=== PATIENT | female | born 2000 | race Caucasian/White ===

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

== ENCOUNTER → 2019-11-29 07:56 | Outpatient (CLI) | payer BC, SELFPAY ==
--- NOTE | 2019-11-29 08:01 | US_ITS ---
PROCEDURE: US ABDOMEN LIMITED CLINICAL INDICATION: SPLENOMEGLY, DECREASE WBC COMPARISON: RUQ US RUQ-(ABD BENNETT)1ORGAN/QUAD/FU from 01/20/2010 FINDINGS: Multiple images demonstrate the spleen to be of normal size and homogeneous appearance. It measures maximally 11 centimeters pole to pole. There is no intrasplenic lesion. There is no perisplenic fluid collection. Internal color Doppler blood flow to the spleen is confirmed. Adjacent left kidney is a normal appearance measuring approximately 7.6 x 3.3 x 4.9 centimeters. IMPRESSION: Unremarkable limited abdominal ultrasound as detailed above Dictated by: Dk Herrera 11/29/2019 08:58 Electronically signed by Dk Herrera in [place] 11/29/2019 08:58
== END ==
PROVIDERS: PCP Nurse Practitioner Family; Visit Provider Internal Medicine Infectious Disease
DX: D72.819 Decreased white blood cell count, unspecified (principal); R16.1 Splenomegaly, not elsewhere classified
CPT/HCPCS: 76705

== ENCOUNTER → 2020-03-31 14:40 | Outpatient (CLI) | payer BC, SELFPAY | PROVIDERS: PCP Nurse Practitioner Family; Visit Provider Nurse Practitioner Family | DX: R40.0 Somnolence (principal); E66.9 Obesity, unspecified | CPT/HCPCS: G0399 ==

== ENCOUNTER 2020-05-31 13:43 | Emergency (ER) | payer BC, SELFPAY ==
[2020-05-31 14:19] VITALS: BP 125/81; PULSE 92; RESP 18; TEMP 37; O2SAT 98; BMI 33.8
--- NOTE | 2020-05-31 14:35 | HMH.EDUTC ---
[facility] [place] Disposition Clinical Impression: Encounter for laboratory testing for COVID-19 virus URI (upper respiratory infection) Qualifiers: URI type: unspecified URI Qualified Code(s): J06.9 - Acute upper respiratory infection, unspecified Disposition: Home, Self-Care Condition on Discharge: Good Instructions: Sore Throat, DI for Nasal Congestion Additional Instructions: *Monitor Temp, Over the counter Motrin or Tylenol as directed/as needed Tylenol every 4 hours and Motrin every 6 hours (as long as your family doctor has told you that you can take it) for fever or pain. and straight to ER if unable to lower temp less than 101.0 after medication given *Warm salt water gargles may help to soothe the throat *Throat Lozenges *Warm fluids like tea with honey may help to soothe the throat *Sleep elevated *Humidifier/Vaporizer Follow up IMMEDIATELY for new or worsening symptoms or no Noticeable improvement over the next 48-72 hours. 911 for difficulty breathing or swallowing Continue taking prescribed medication that your PCP placed you on on Mon You was tested for today for COVID19 your test result should be back later this evening, you may call back later this evening to see if your test results are back and the result You was given a handout with instructions for Self Quarantine and Self isolation for while you wait on test results and what to do if they are positive Referrals: Emily Rodarte APRN [Primary Care Provider] - As needed Forms: Work/School Release Time of Disposition: 14:40 Medical Decision Making - Eulogio Inquiry Pt receiving controlled substance: No Eulogio was queried for this patient: No Vital Signs: 05/31/20 14:19 Temperature 98.6 F Temperature Source Oral Pulse Rate [Radial] 92 H Respiratory Rate 18 Blood Pressure [Right Arm] 125/81 Blood Pressure Mean [Right Arm] 95 Blood Pressure Source [Right Arm] Automatic Cuff Blood Pressure Position [Right Arm] Sitting 02 Sat by Pulse Oximetry 98 Oxygen Delivery Method Room Air Orders (Tests/Meds): ORDERS Category Date Time Status Covid-19 Nasal PCR ([facility]) Routine Lab 05/31/20 13:53 Received [facility] [place] HPI - General Stated complaint: sore throat,earache,cough,headache Time Seen by Provider: 05/31/20 14:35 Mode of Arrival: Ambulatory Source of Information: Patient Limitations: No Limitations Description of Symptoms (Recalled from Triage Doc. by RN): sinus pain, congestion, coughing, sore throat, runny nose, weakness, body aches, headaches, chills. HEENT Symptoms (Recalled from RN notes): Yes Resp Symptoms (Recalled from RN notes): Yes Skin Symptoms (Recalled from RN notes): No MS Symptoms (Recalled from RN notes): No Functional Status (Recalled from RN notes): wnl - History of Present Illness Provider Complaint: Patient states that she started on steriods and antibiotics on Mon but they havent helped States that she has been having sinus pain and drainage along with cough and sore throat States that she recently started a new job and was worried that she may have been exposed to COVID - Related Data Home Medications Medication Instructions Recorded Confirmed glycopyrrolate 1 mg tablet 1 mg PO ONCE tab 05/18/20 05/18/20 phentermine 37.5 mg tablet 37.5 mg PO DAILY tab 05/18/20 05/18/20 sertraline 100 mg tablet 100 mg PO DAILY tab 05/18/20 05/18/20 triamcinolone acetonide 0.1 % TOPICAL 05/18/20 05/18/20 topical cream Allergies Allergy/AdvReac Type Severity Reaction Status Date / Time No Known Allergies Allergy Verified 05/18/20 10:19 - Worker's Comp Is this a Worker's Comp case?: No [facility] History - Hepatitis A Screen Drug use history?: No High risk sexual behaviors?: No History of sexually transmitted infection?: No Currently employed?: No Childcare worker?: No Do you have indoor plumbing?: Yes Do you have electricity?: Yes Attestation statement:: This patient has been screened for Hepatitis A risk factors.
[2020-05-31 14:47] VITALS: BP 125/81; PULSE 92; RESP 18; TEMP 37; O2SAT 98
[2020-05-31 16:38] LABS: UTC Influenza A Antigen Negative (Negative); UTC Strep Screen (Rapid) Negative (Negative)
[2020-05-31 16:41] LABS: UTC Influenza B Antigen Negative (Negative)
== END 2020-05-31 14:48 | disposition home or self-care (01) ==
PROVIDERS: Emergency Provider Nurse Practitioner; PCP Nurse Practitioner Family
DX: J06.9 Acute upper respiratory infection, unspecified (principal); Z20.828 Contact with and (suspected) exposure to other viral communicable diseases; F17.290 Nicotine dependence, other tobacco product, uncomplicated
CPT/HCPCS: 87804; 87880; 99201; U0003

== ENCOUNTER → 2020-06-02 10:53 | Outpatient (CLI) | payer BC, SELFPAY ==
--- NOTE | 2020-06-02 10:53 | MR_ITS ---
PROCEDURE: MR HEAD/BRAIN WO CON CLINICAL INDICATION: Transient alteration of awareness associated with stuttering and word finding difficulties TWITCHING IN EYE THAT CAUSES BLINKING UNCONTROLLABLE DURING EPISODE WHEN TALKS SHE STUTTERS. XYRS. EPISODES HAPPENS X2-3YRS TIMES A YR. HEADACHE AND SENSITIVITY TO LIGHT FOLLOWED BY EXHAUSTION. COMPARISON: No exams were available for comparison TECHNIQUE: Routine multiplanar multi echo sequences are performed without gadolinium enhancement. FINDINGS: Midline shift, mass effect, intracranial hemorrhage, or hydrocephalus is evident. No evidence of acute infarction. The cerebellopontine angle, cerebellum, and brainstem have an unremarkable appearance. There is minimal cerebellar tonsillar ectopia of 3 mm. The 4th ventricle has an unremarkable appearance. The pituitary, optic chiasm, and upper cervical spinal cord have an unremarkable appearance. No abnormal white matter signal intensity. The hippocampal gyri are unremarkable in the temporal horns are symmetric. No mastoid effusion or sinus air-fluid level. IMPRESSION: No acute intracranial finding. Minimal cerebellar tonsillar ectopia which is of questionable clinical significance with unremarkable appearing 4th ventricle Dictated by: Jesus Mathew MD 06/03/2020 13:24 Jesus Mathew MD in [place] 06/03/2020 13:24
== END ==
PROVIDERS: PCP Nurse Practitioner Family; Visit Provider Specialist
DX: F80.81 Childhood onset fluency disorder (principal); R40.4 Transient alteration of awareness; R47.89 Other speech disturbances; R51 Headache
CPT/HCPCS: 70551

== ENCOUNTER → 2020-10-19 13:52 | Outpatient (CLI) | payer BC, SELFPAY ==
--- NOTE | 2020-10-19 13:58 | XR_ITS ---
PROCEDURE: XR LUMBAR SPINE MIN 4V CLINICAL INDICATION: ACUTE MIDLINE LOW BAKC PAIN W/O SCIATICA, WEAKNESS OF LEGS COMPARISON: No exams were available for comparison FINDINGS: No fracture or dislocation. No lytic or blastic change. There is normal mineralization. The disc spaces are well-preserved. No significant degenerative/arthritic changes. No erosive changes evident. Other findings:There is acute anterior angulation of the coccyx nonspecific and may be developmental or posttraumatic. IMPRESSION: Negative lumbar spine. Anterior angulation of the coccyx which may be posttraumatic or developmental Dictated by: Jesus Mathew MD 10/19/2020 16:42 Jesus Mathew MD in [place] 10/19/2020 16:42
== END ==
PROVIDERS: PCP Nurse Practitioner Family; Visit Provider Nurse Practitioner Family
DX: M54.5 Low back pain (principal); R29.898 Other symptoms and signs involving the musculoskeletal system
CPT/HCPCS: 72110

== ENCOUNTER → 2020-11-12 15:51 | Outpatient (CLI) | payer BC, SELFPAY ==
--- NOTE | 2020-11-12 15:53 | XR_ITS ---
PROCEDURE: XR CHEST 2V CLINICAL HISTORY: CHEST PAIN UNSPECIFIED, SOB COMPARISON: No exams were available for comparison FINDINGS: The cardiomediastinal silhouette and pulmonary vascularity are within normal limits. The lungs are clear without infiltrates, suspicious nodules, or pleural effusions. There is evidence of old granulomatous disease. No acute bony findings. IMPRESSION: No acute findings. Dictated by: Jesus Mathew MD 11/12/2020 17:25 Jesus Mathew MD in [place] 11/12/2020 17:25
== END ==
LOC: RAD 15:51 → COVID.OUT 16:12
PROVIDERS: PCP Nurse Practitioner Family; Visit Provider Nurse Practitioner Family
DX: Z20.822 Contact with and (suspected) exposure to COVID-19 (principal); R06.02 Shortness of breath; R05 Cough; R53.83 Other fatigue
CPT/HCPCS: 71046; U0003

== ENCOUNTER 2021-01-09 09:00 | Emergency (ER) | payer BC, SELFPAY ==
[2021-01-09 09:21] VITALS: BP 124/64; PULSE 84; RESP 18; TEMP 37; O2SAT 99; BMI 35.4
--- NOTE | 2021-01-09 09:27 | HMH.EDUTC ---
[facility] [place] Disposition Clinical Impression: Sinusitis Qualifiers: Sinusitis location: unspecified location Chronicity: unspecified Qualified Code(s): J32.9 - Chronic sinusitis, unspecified Disposition: Home, Self-Care Condition on Discharge: Good Instructions: Sinusitis, DI for Sinusitis, Amoxicillin and Clavulanic Acid Additional Instructions: *Monitor Temp, Over the counter Motrin or Tylenol as directed/as needed Tylenol every 4 hours and Motrin every 6 hours (as long as your family doctor has told you that you can take it) for fever or pain. and straight to ER if unable to lower temp less than 101.0 after medication given *Warm salt water gargles may help to soothe the throat *Throat Lozenges *Warm fluids like tea with honey may help to soothe the throat *Sleep elevated *Humidifier/Vaporizer *Flonase 2 sprays in each nostril daily but be aware that it may take 2-3 days before you notice improvement Mucinex during the day for your cough and cough suppressant only at night. Be sure to drink lots of water. Your throat swab was sent for culture. Those results are typically sent to your primary care. Be sure to follow up in 2-3 days with your family doctor/primary care physician if no improvement so they can review those result and treat if necessary. If you don?t have a primary care doctor, I recommend you get one but in the mean time, you will have to return to a walk in clinic Follow up IMMEDIATELY for new or worsening symptoms or no Noticeable improvement over the next 48-72 hours. 911 for difficulty breathing or swallowing Prescriptions: Amoxicillin/Potassium Clav [Augmentin 875-125 Tablet] 1 tab PO Q12H 7 Days #14 tab Transmission Status: Received by [facility] Fluticasone Propionate [Flonase 50mcg nasal spray 16gm] 1 spr NS DAILY #1 bottle Transmission Status: Received by [facility] methylPREDNISolone [Medrol 4mg tab] 4 mg PO DIRECTED #21 tab Transmission Status: Received by [facility] Referrals: Emily Rodarte APRN [Primary Care Provider] - As needed Time of Disposition: 09:52 Medical Decision Making - Eulogio Inquiry Pt receiving controlled substance: No Eulogio was queried for this patient: No Vital Signs: 01/09/21 09:21 01/09/21 09:56 Temperature 98.6 F 98.5 F Temperature Source Oral Pulse Rate 90 Pulse Rate [Left Radial] 84 Respiratory Rate 18 18 Blood Pressure 119/63 Blood Pressure [Right Arm] 124/64 Blood Pressure Mean [Right Arm] 84 02 Sat by Pulse Oximetry 99 Oxygen Delivery Method Room Air - Lab Data Lab results reviewed: Yes: I reviewed the patient's lab results. Lab Results 01/09/21 09:15: Strep Scn Rapid Clinic Negative 01/09/21 09:37: Tst Clinic Negative Orders (Tests/Meds): ORDERS Category Date Time Status Covid-19 Nasal PCR ([facility]) Routine Lab 01/09/21 09:50 Received Strep Screen Confirmation Stat Micro 01/09/21 09:15 Received [facility] UTC HPI - General Stated complaint: body aches, both ear pain Time Seen by Provider: 01/09/21 09:27 Mode of Arrival: Ambulatory Source of Information: Patient Limitations: No Limitations Description of Symptoms (Recalled from Triage Doc. by RN): Body aches, sore throat, bilateral ear pain, weakness, productive cough HEENT Symptoms (Recalled from RN notes): Yes Resp Symptoms (Recalled from RN notes): Yes Skin Symptoms (Recalled from RN notes): No MS Symptoms (Recalled from RN notes): No Functional Status (Recalled from RN notes): na - History of Present Illness Provider Complaint: Patient states that she has been having pressure in her head behind her eyes, bilateral ear pain, sore throat, drainage and at time she coughs up some mucous States that today she noticed her lymph nodes was swollen and feels like she may have strep throat - Related Data Home Medications Medication Instructions Recorded Confirmed glycopyrrolate 1 mg tablet 1 mg PO ONCE tab 05/18/20 12/14/20 Pre
[2021-01-09 09:56] VITALS: BP 119/63; PULSE 90; RESP 18; TEMP 36.9
[2021-01-09 09:58] LABS: UTC Pregnancy Test, Urine Negative (Negative)
[2021-01-09 09:59] LABS: UTC Strep Screen (Rapid) Negative (Negative)
[2021-01-09 20:45] LABS: UTC Influenza A Antigen Negative (Negative)
[2021-01-09 20:46] LABS: UTC Influenza B Antigen Negative (Negative)
== END 2021-01-09 09:59 | disposition home or self-care (01) ==
PROVIDERS: Emergency Provider Nurse Practitioner; PCP Nurse Practitioner Family
DX: J32.9 Chronic sinusitis, unspecified (principal); Z20.822 Contact with and (suspected) exposure to COVID-19; F41.8 Other specified anxiety disorders; F17.290 Nicotine dependence, other tobacco product, uncomplicated; Z79.899 Other long term (current) drug therapy
CPT/HCPCS: 81025; 87804; 87880; 99202; G0463; U0003

== ENCOUNTER 2021-02-18 10:42 | Emergency (ER) | payer BC, SELFPAY ==
[2021-02-18 11:10] VITALS: BP 109/79; PULSE 68; RESP 17; TEMP 36.8; O2SAT 100; BMI 36.3
--- NOTE | 2021-02-18 11:22 | HMH.EDUTC ---
[facility] [place] Disposition Clinical Impression: Gastroenteritis Disposition: Home, Self-Care Condition on Discharge: Good Instructions: Viral Gastroenteritis, DI for Viral Gastroenteritis -- Adult Additional Instructions: Drink plenty of fluids. Take tylenol or ibuprofen for pain or fever. Take the medications as directed. Follow up with your regular doctor. GO TO THE ER FOR ANY WORSENING SYMPTOMS Prescriptions: Ondansetron [Zofran 4mg ODT] 4 mg PO Q8HP PRN #12 tab.rapdis PRN Reason: Nausea Transmission Status: Received by [id number] Referrals: Emily Rodarte APRN [Primary Care Provider] - Forms: Work/School Release Time of Disposition: 11:28 Medical Decision Making - Medical Records Medical records reviewed: No: I reviewed the patient's medical records. - Eulogio Inquiry Pt receiving controlled substance: No Vital Signs: 02/18/21 11:10 02/18/21 11:33 Temperature 98.3 F 98 F Temperature Source Oral Oral Pulse Rate 68 Pulse Rate [Right] 68 Respiratory Rate 17 17 Blood Pressure 109/79 L Blood Pressure [Right Arm] 109/79 L Blood Pressure Mean [Right Arm] 89 02 Sat by Pulse Oximetry 100 - Lab Data Lab Results 02/18/21 11:30: Strep Scn Rapid Clinic Negative Orders (Tests/Meds): ORDERS Category Date Time Status Strep Screen Confirmation Stat Micro 02/18/21 11:30 Received [facility] HPI - General Stated complaint: nausea, diarrhea, weakness Time Seen by Provider: 02/18/21 11:22 Mode of Arrival: Ambulatory Source of Information: Patient Limitations: No Limitations Description of Symptoms (Recalled from Triage Doc. by RN): pt c/o N/V/D and weakness that started last night. HEENT Symptoms (Recalled from RN notes): No Resp Symptoms (Recalled from RN notes): No Skin Symptoms (Recalled from RN notes): No MS Symptoms (Recalled from RN notes): No Functional Status (Recalled from RN notes): na - History of Present Illness Provider Complaint: She states that she has had n/d since last night. She has not vomited, but she states that she could vomit at any time. She denies any abdominal pain. She denies fever and chills. - Related Data Previous Rx's Medication Instructions Recorded sertraline 100 mg tablet 100 mg PO DAILY #30 tab 01/29/21 dextroamphetamine-amphetamine ER 15 mg PO DAILY #30 cap 02/12/21 15 mg 24hr capsule,extend release Ondansetron [Zofran 4mg ODT] 4 mg PO Q8HP PRN #12 tab.rapdis 02/18/21 Allergies Allergy/AdvReac Type Severity Reaction Status Date / Time No Known Allergies Allergy Verified 02/18/21 11:20 - Worker's Comp Is this a Worker's Comp case?: No [facility] History - Hepatitis A Screen Drug use history?: No High risk sexual behaviors?: No History of sexually transmitted infection?: No Currently employed?: No Childcare worker?: No Do you have indoor plumbing?: Yes Do you have electricity?: Yes Attestation statement:: This patient has been screened for Hepatitis A risk factors. I have reviewed the patient's past medical history: Yes Medical History: Reports:: Anxiety, Asthma, Depression, Migraine Other Medical History: Reports: Anemia Laterality Cases: Bilateral: Tonsillectomy Other Surgeries: Yes: Other Amputation: No Fractures: No - Social History Smoking Status: Current every day smoker Tobacco Type: e-cigarettes Alcohol Intake: never Substance Use Type: denies use Occupational Status: employed Housing: house Household Members: significant other - Psychiatric History Pschychiatric History:: Reports:: Anxiety, Depression Family Hx:: Diabetes, Heart Attack, Kidney Disease, Thyroid Disorder ROS Obtained: Yes All systems reviewed & no additional complaints - Constitutional Constitutional: Denies chills, Denies fever(s), Reports poor appetite, Reports malaise - Eyes Eyes: Denies eye discharge - ENT Ears, Nose, Mouth, and Throat: Denies dizziness, Denies otalgia, Denies sore throat - Cardiovascul
[2021-02-18 11:32] LABS: UTC Strep Screen (Rapid) Negative (Negative)
[2021-02-18 11:33] VITALS: BP 109/79; PULSE 68; RESP 17; TEMP 36.6
== END 2021-02-18 11:41 | disposition home or self-care (01) ==
PROVIDERS: Emergency Provider Nurse Practitioner Family; PCP Nurse Practitioner Family
DX: K52.9 Noninfective gastroenteritis and colitis, unspecified (principal); F41.9 Anxiety disorder, unspecified; F32.9 Major depressive disorder, single episode, unspecified; F17.290 Nicotine dependence, other tobacco product, uncomplicated
CPT/HCPCS: 87880; 99202; G0463; U0003

== ENCOUNTER 2021-04-05 08:59 | Emergency (ER) | payer BC, SELFPAY ==
--- NOTE | 2021-04-05 09:20 | HMH.EDUTC ---
[facility] [place] Clinical Impression: Viral syndrome Acute bronchitis Qualifiers: Bronchitis organism: unspecified organism Qualified Code(s): J20.9 - Acute bronchitis, unspecified Disposition: Home, Self-Care Condition on Discharge: Good Instructions: DI for Acute Bronchitis, Preventing the Spread of Coronavirus Discharge Instructions Additional Instructions: Go home and quarantine until we have the results of your Covid-19 test. Take the medications as directed. Follow up with your primary care physician. GO TO THE ER FOR ANY WORSENING SYMPTOMS OR CONCERNS, ESPECIALLY ANY DIFFICULTY BREATHING Prescriptions: Brompheniramine/Pseudoephed/Dm [Bromfed Dm Cough Syrup] 5 ml PO Q6HP PRN #240 syrup PRN Reason: Cough Transmission Status: Received by [facility] predniSONE [Deltasone 10mg tablet] 10 mg PO BID 5 Days #10 tab Transmission Status: Received by [facility] Azithromycin [Z-Angel 250mg Tab*] 250 mg PO UD DOSE PK #6 tab Transmission Status: Received by [facility] Referrals: Emily Rodarte APRN [Primary Care Provider] - Forms: Work/School Release Time of Disposition: 09:33 Medical Decision Making - Medical Records Medical records reviewed: No: I reviewed the patient's medical records. - Eulogio Inquiry Pt receiving controlled substance: No Vital Signs: 04/05/21 09:23 04/05/21 10:21 Temperature 100.2 F H 100 F H Temperature Source Oral Pulse Rate 109 H Pulse Rate [Left] 105 H Respiratory Rate 18 16 Blood Pressure 123/84 Blood Pressure [Right Arm] 108/63 L Blood Pressure Mean [Right Arm] 78 02 Sat by Pulse Oximetry 100 - Lab Data Lab results reviewed: Yes: I reviewed the patient's lab results. Lab Results 04/05/21 09:15: SARS-CoV-2 (PCR) Detected A, Influenza A Untype (PCR) Not detected, Influenza Type B (PCR) Not detected 04/05/21 09:15: Chlamy pneumoniae PCR Not detected, Adenovirus (PCR) Not detected, B. pertussis DNA (PCR) Not detected, Coronavirus OC43 (PCR) Not detected, Coronavirus HKU1 (PCR) Not detected, Coronavirus 229E (PCR) Not detected, Coronavirus NL63 (PCR) Not detected, Human Metapneumovir PCR Not detected, Influenza A (H1) PCR Not detected, Influ A (H1N1/09) PCR Not detected, Influenza A (H3) PCR Not detected, Influenza Type A (PCR) Not detected, Influenza Type B (PCR) Not detected, M. pneumoniae (PCR) Not detected, Parainfluenza 1 (PCR) Not detected, Parainfluenza 2 (PCR) Not detected, Parainfluenza 3 (PCR) Not detected, Parainfluenza 4 (PCR) Not detected, RSV (PCR) Not detected, Entero/Rhino (PCR) Not detected 04/05/21 09:30: Strep Scn Rapid Clinic Negative Orders (Tests/Meds): ORDERS Category Date Time Status Strep Screen Confirmation Stat Micro 04/05/21 09:30 [place] [facility] [place] - General Stated complaint: Weakness headache congestion Time Seen by Provider: 04/05/21 09:21 - History of Present Illness Provider Complaint: She states that she has had a cough, body aches and generally feeling bad since yesterday. She denies documented fever. She has diarrhea that started 3 days ago. Denies n/v. - Related Data Previous Rx's Medication Instructions Recorded dextroamphetamine-amphetamine ER 15 mg PO DAILY #30 cap 02/12/21 15 mg 24hr capsule,extend release Ondansetron [Zofran 4mg ODT] 4 mg PO Q8HP PRN #12 tab.rapdis 02/18/21 sertraline 100 mg tablet 150 mg PO DAILY #30 tab 03/15/21 Azithromycin [Z-Angel 250mg Tab*] 250 mg PO UD DOSE PK #6 tab 04/05/21 Brompheniramine/Pseudoephed/Dm 5 ml PO Q6HP PRN #240 syrup 04/05/21 [Bromfed Dm Cough Syrup] predniSONE [Deltasone 10mg tablet] 10 mg PO BID 5 Days #10 tab 04/05/21 Allergies Allergy/AdvReac Type Severity Reaction Status Date / Time No Known Allergies Allergy Verified 04/05/21 09:30 [facility] History - Hepatitis A Screen Attestation statement:: This patient has been screened for Hepatitis A risk factors. I have reviewed the patient's past me
[2021-04-05 09:23] VITALS: BP 108/63; PULSE 105; RESP 18; TEMP 37.9; O2SAT 100; BMI 36.3
[2021-04-05 09:35] LABS: Adenovirus,PCR Not Detected (NotDetected); Bordetella Pertussis Not Detected (NotDetected); Chlamydophila Pneumoniae, PCR Not Detected (NotDetected); Coronavirus 229E Not Detected (NotDetected); Coronavirus NL63 Not Detected (NotDetected); Coronavirus OC43 Not Detected (NotDetected); Coronovirus HKU1,PCR Not Detected (NotDetected); Human Metapneumovirus Not Detected (NotDetected); Influenza A, PCR Not Detected (NotDetected); Influenza AH1, 2009 Not Detected (NotDetected); Influenza AH1, PCR Not Detected (NotDetected); Influenza AH3,PCR Not Detected (NotDetected); Influenza B, PCR Not Detected (NotDetected); Mycoplasma Pneumoniae, PCR Not Detected (NotDetected); Parainfluenza 1, PCR Not Detected (NotDetected); Parainfluenza 2, PCR Not Detected (NotDetected); Parainfluenza 3, PCR Not Detected (NotDetected); Parainfluenza 4, PCR Not Detected (NotDetected); Respiratory Syncytial Virus Not Detected (NotDetected); Rhinovirus/Enterovirus Not Detected (NotDetected)
[2021-04-05 10:21] VITALS: BP 123/84; PULSE 109; RESP 16; TEMP 37.7
[2021-04-05 10:56] LABS: UTC Strep Screen (Rapid) Negative (Negative)
[2021-04-05 11:46] LABS: Coronavirus 19, PCR Detected (NotDetected)
--- NOTE | 2021-04-05 16:56 | PC.NURSE ---
Pt called and advised of positive covid test
== END 2021-04-05 10:26 | disposition home or self-care (01) ==
PROVIDERS: Emergency Provider Nurse Practitioner Family; PCP Nurse Practitioner Family
DX: B34.9 Viral infection, unspecified (principal); J20.9 Acute bronchitis, unspecified; F41.9 Anxiety disorder, unspecified; J45.909 Unspecified asthma, uncomplicated; F32.9 Major depressive disorder, single episode, unspecified; G43.909 Migraine, unspecified, not intractable, without status migrainosus; D64.9 Anemia, unspecified; Z72.0 Tobacco use
CPT/HCPCS: 87486; 87581; 87633; 87798; 87880; 99203; G0463; U0003

== ENCOUNTER → 2021-04-15 11:14 | Outpatient (CLI) | payer BC, SELFPAY | PROVIDERS: PCP Nurse Practitioner Family; Visit Provider Nurse Practitioner Family | DX: Z20.822 Contact with and (suspected) exposure to COVID-19 (principal) | CPT/HCPCS: U0003 ==

== ENCOUNTER 2021-07-30 18:21 | Emergency (ER) | payer BC, SELFPAY ==
[2021-07-30 18:36] VITALS: BP 143/76; PULSE 80; RESP 16; TEMP 36.5; O2SAT 100; BMI 38.4
--- NOTE | 2021-07-30 19:09 | HMH.EDUTC ---
[facility] [place] Clinical Impression: Impetigo Disposition: Home, Self-Care Condition on Discharge: Good Instructions: DI for Impetigo, Mupirocin Additional Instructions: Keep the affected area clean and dry. Follow up with your regular doctor. Let your grave cleaner doctor know what is going on with you also. Follow their orders from there. Take the antibiotics as directed and apply the topical antibiotics as directed. GO TO THE ER FOR ANY WORSENING SYMPTOMS Prescriptions: Mupirocin [Bactroban 2% Ointment 22gm tube] 1 applicatio TP TID 7 Days #1 gm Transmission Status: Received by [email or web address] cephALEXin [cephALEXin 500mg capsule] 500 mg PO Q6H 7 Days #28 cap Transmission Status: Received by [email or web address] Referrals: Emily Rodarte APRN [Primary Care Provider] - Time of Disposition: 19:20 Medical Decision Making - Medical Records Medical records reviewed: No: I reviewed the patient's medical records. - Eulogio Inquiry Pt receiving controlled substance: No Vital Signs: 07/30/21 18:36 07/30/21 19:26 Temperature 97.7 F 97.7 F Temperature Source Oral Pulse Rate 80 Pulse Rate [Left] 80 Respiratory Rate 16 16 Blood Pressure 143/76 H Blood Pressure [Right Arm] 143/76 H Blood Pressure Mean [Right Arm] 98 02 Sat by Pulse Oximetry 100 Orders (Tests/Meds): ORDERS Category Date Time Status Wound Culture and Gram Stain Stat Micro 07/29/21 19:16 Ordered [facility] [place]PI - General Stated complaint: RASH Time Seen by Provider: 07/30/21 19:09 Mode of Arrival: Ambulatory Source of Information: Patient Limitations: No Limitations Description of Symptoms (Recalled from Triage Doc. by RN): pt c/o a rash on her L thumb, L lower arm, and above her R eyebrow. pt is 9 wks . HEENT Symptoms (Recalled from RN notes): No Resp Symptoms (Recalled from RN notes): No Skin Symptoms (Recalled from RN notes): Yes MS Symptoms (Recalled from RN notes): No Functional Status (Recalled from RN notes): wnl - History of Present Illness Provider Complaint: She has several crusted lesions on her that have been itching. One is on her left fore arm, one is on her forehead, one is on her right facial cheek. She states they began about 4 days ago and they felt like bug bites at first. Since then they have got larger and drained clear yellowish drainage. She denies any fever or chills. She is 9 weeks . She denies any issues with her or any other complaints. - Related Data Previous Rx's Medication Instructions Recorded Ondansetron [Zofran 4mg ODT] 4 mg PO Q8HP PRN #12 tab.rapdis 02/18/21 sertraline 100 mg tablet 150 mg PO DAILY #45 tab 07/20/21 Mupirocin [Bactroban 2% Ointment 1 applicatio TP TID 7 Days #1 gm 07/30/21 22gm tube] cephALEXin [cephALEXin 500mg 500 mg PO Q6H 7 Days #28 cap 07/30/21 capsule] Allergies Allergy/AdvReac Type Severity Reaction Status Date / Time No Known Allergies Allergy Verified 07/20/21 08:49 - Worker's Comp Is this a Worker's Comp case?: No [facility] History - Hepatitis A Screen Drug use history?: No High risk sexual behaviors?: No History of sexually transmitted infection?: No Currently employed?: No Childcare worker?: No Do you have indoor plumbing?: Yes Do you have electricity?: Yes Attestation statement:: This patient has been screened for Hepatitis A risk factors. I have reviewed the patient's past medical history: Yes Medical History: Reports:: Anxiety, Asthma, Depression, Migraine Other Medical History: Reports: Anemia Laterality Cases: Bilateral: Tonsillectomy Other Surgeries: Yes: Other Amputation: No Fractures: No - Social History Smoking Status: Current every day smoker Tobacco Type: e-cigarettes Alcohol Intake: never Substance Use Type: denies use Occupational Status: employed Housing: house Household Members: significant other - Psychiatric History Pschychiatric History:: Reports:: Anxie
[2021-07-30 19:26] VITALS: BP 143/76; PULSE 80; RESP 16; TEMP 36.5
== END 2021-07-30 19:43 | disposition home or self-care (01) ==
PROVIDERS: Emergency Provider Nurse Practitioner Family; PCP Nurse Practitioner Family
DX: L01.00 Impetigo, unspecified (principal); Z3A.09 9 weeks gestation of pregnancy; F41.8 Other specified anxiety disorders
CPT/HCPCS: 87070; 87077; 87186; 87205; 99202; G0463

== ENCOUNTER 2022-02-08 04:40 | Observation (INO) | payer BC, SELFPAY ==
[2022-02-08] VITALS (23 sets, daily range): BP systolic 128–156; BP diastolic 60–96; PULSE 63–95; RESP 16–18; TEMP 36.6–36.8; O2SAT 98–99; BMI 42.5
--- NOTE | 2022-02-08 04:19 | PC.NURSE ---
PT TO FLOOR AT 0405, C/O HIGH B/P AND DULL H/A UNRELIEVED BY TYLENOL. NO S/S OF COVID. U/A ATTEMPTED AT THIS TIME BUT UNABLE TO VOID. TO ROOM 272, MOTHER WITH HER. AMBULATING WELL INDEPENDENTLY. +2 NON PITTING EDEMA TO BLE. CLONUS ABSENT, REFLEXES PRESENT.
--- NOTE | 2022-02-08 04:38 | PC.NURSE ---
CONTACTED JUAN R GOTTLIEB TO UPDATE ON PT. ORDERS TO ADMIT AND BEGIN MAGNESIUM AT THIS TIME.
--- NOTE | 2022-02-08 05:59 | PC.NURSE ---
PT RESTING COMFORTABLY IN BED AT THIS TIME. B/P BEING TAKEN Q5MINS. AWAITING LAB RESULTS TO BEGIN MAGNESIUM. NO NEEDS OR C/O NOTED.
[2022-02-08 06:22] LABS: Basophils # 0.1 K/mm3 (0-0.2); Basophils % 1.3 % (0.1-2.0); Eosinophils # 0.1 K/mm3 (0.0-0.4); Eosinophils % 1.4 % (0.1-12.0); Hematocrit 35.3 % (37.0-47.0); Hemoglobin 12.4 g/dL (12.2-16.2); Lymphocytes # 2.6 K/mm3 (0.7-4.5); Lymphocytes % 33.4 % (10-50); Mean Corpuscular HGB Conc 35.1 g/dL (31.8-35.4); Mean Corpuscular Hemoglobin 34.1 pg (27.0-31.2); Mean Corpuscular Volume 97.1 fl (81-99); Mean Platelet Volume 13.9 fl (7.4-10.4); Monocytes # 0.4 K/mm3 (0.1-1.0); Monocytes % 5.1 % (1.7-9.3); Neutrophils # 4.6 K/mm3 (1.8-7.8); Neutrophils % 58.9 % (37.0-80.0); Platelet Count 114 K/mm3 (142-424); Red Blood Count 3.64 M/mm3 (4.20-5.40); Red Cell Distribution Width 13.2 % (11.5-17.5); White Blood Count 7.9 K/mm3 (4.8-10.8)
[2022-02-08 06:32] LABS: Activated Partial Thrombo Time 26.5 seconds (22.8-30.6); Fibrinogen 383 mg/dL (229.9-363.5); INR 0.84 (0.9-1.1); Prothrombin Time 9.6 seconds (10.1-12.5)
[2022-02-08 07:16] LABS: Uric Acid 4.4 mg/dl (2.5-6.2)
[2022-02-08 07:21] LABS: Alanine Aminotransferase 17 U/L (12-78); Anion Gap 8.5 mEq/L (5-15); Aspartate Amino Transferase 32 U/L (14-36); Blood Urea Nitrogen 10 mg/dl (7-17); Calcium 8.7 mg/dl (8.4-10.2); Carbon Dioxide 26 mmol/L (22.0-30.0); Chloride 104 mmol/L (98-107); Creatinine Clearance Estimated 87 mL/min (50-200); Estimated Glomerular Filt Rate 90 ml/min (>60); GFR (African American) 109 ML/MIN (>60); Glucose 89 mg/dl (74-100); Magnesium 1.5 mg/dl (1.6-2.3); Potassium 3.5 mmoL/L (3.5-5.1); Sodium 135 mmol/L (136-145)
[2022-02-08 07:22] LABS: D-Dimer 1.91 ug/mL (0.0-0.5)
--- NOTE | 2022-02-08 07:40 | PC.NURSE ---
0710 Sleeping soundly, resps even and unlabored.
--- NOTE | 2022-02-08 07:44 | HMH.PHAINT ---
MEDICATION RECONCILIATION COMPLETED ON PATIENT USING EXTERNAL FILL HISTORY FROM PHARMACY. -RENE FUENTES, SKYLERD
--- NOTE | 2022-02-08 09:11 | HMH.HP ---
*Admission Date: 02/08/22 *Chief complaint: Headache, high blood pressure *History of present illness: She is a 21-year-old 1 now para 1 who was 2 days from a vaginal delivery at [facility]. She was admitted for induction of labor and delivered spontaneously a liveborn male child. She received some nifedipine while hospitalized but was not sent with any blood pressure medicine at home. When she arrived here her blood pressure was in the 150s over 90s. She had a mild headache. As result of that she is admitted for blood pressure control. [facility] History I have reviewed the patient's past medical history: Yes Medical History: Reports:: Anxiety, Asthma, Depression, Migraine *Have you ever received a pneumonia vaccine?: No *Have you received a flu vaccine this season?: No Other Medical History: Reports: Anemia Laterality Cases: Bilateral: Tonsillectomy Other Surgeries: Yes: Other. No: Amputation: No Fractures: No - *Social History Smoking Status: Current every day smoker Tobacco Type: e-cigarettes Alcohol Intake: never Substance Use Type: denies use *Occupational Status:: employed Housing: house Household Members: significant other *Travel in the last 8 weeks: None - Psychiatric History Pschychiatric History:: Reports:: Anxiety, Depression Family Hx:: Diabetes, Heart Attack, Kidney Disease, Thyroid Disorder Para: 1 Review of Systems - Review of Systems Review of systems:: pertinent systems reviewed and negative unless documented below Meds Home Medications Medication Instructions Recorded Confirmed Type Ondansetron [Zofran 4mg ODT] 4 mg PO Q8HP PRN #12 tab.rapdis 02/18/21 02/08/22 Rx Ibuprofen [Ibuprofen 600mg 600 mg PO TIDP PRN 02/08/22 02/08/22 History Tablet] Mupirocin [Bactroban 2% Ointment 1 applicatio TP TID 02/08/22 02/08/22 History 22gm tube] Sertraline HCl [Zoloft] 150 mg PO DAILY 02/08/22 02/08/22 History Allergies Allergy/AdvReac Type Severity Reaction Status Date / Time No Known Allergies Allergy Verified 01/10/22 08:33 Exam Vital signs and Labs for Last 24 Hours: Temp Pulse Resp BP Pulse Ox 98.2 F 73 18 148/77 H 98 02/08/22 08:12 02/08/22 08:12 02/08/22 08:12 02/08/22 08:12 02/08/22 08:12 Laboratory Results - last 24 hr 02/08/22 05:30: WBC 7.9, RBC 3.64 L, Hgb 12.4, Hct 35.3 L, MCV 97.1, MCH 34.1 H, MCHC 35.1, RDW 13.2, Plt Count 114 L, MPV 13.9 H, Neut % (Auto) 58.9, Lymph % (Auto) 33.4, [place] % (Auto) 5.1, Eos % (Auto) 1.4, Baso % (Auto) 1.3, Neut # (Auto) 4.6, Lymph # (Auto) 2.6, [place] # (Auto) 0.4, Eos # (Auto) 0.1, Baso # (Auto) 0.1 02/08/22 05:30: PT 9.6 L, INR 0.84 L, APTT 26.5, Fibrinogen 383 H 02/08/22 05:30: D-Dimer 1.91 H, Sodium 135 L, Potassium 3.5, Chloride 104, Carbon Dioxide 26, Anion Gap 8.5, BUN 10, Creatinine 0.80, Estimated Creat Clear 87, Estimated GFR 90, Est GFR ( Amer) 109, Glucose 89, Uric Acid 4.4, Calcium 8.7, Magnesium 1.5 L, AST 32, ALT 17 I & O for Last 24 hours: Intake & Output 02/05/22 02/06/22 02/07/22 02/08/22 11:59 11:59 11:59 11:59 Weight 239 lb 15.994 oz - Constitutional no acute distress, obese - *Routine HEENT Exam Head: Present: normocephalic Eye: Present: EOMI, PERRL ENT: Present: mucous membranes moist - *Routine Neck Exam Present: supple, full ROM - *Routine Respiratory Exam Absent: accessory muscle use (good air entry bilaterally), wheezes, crackles - *Routine Cardiovascular Exam Present: RRR. Absent: murmur - *Routine Abdominal Exam Present: soft, normoactive bowel sounds. Absent: tenderness, rebound, guarding, mass - *Routine Rectal Exam Rectal:: deferred - *Routine Genitalia Exam Genitalia:: deferred - *Routine Extremities Exam Present: full ROM. Absent: cyanosis, edema, calf tenderness - *Routine Skin Exam Present: intact (good color) - *Routine Neurological Exam Present: alert, oriented X3 - Routine Psychiatric
--- NOTE | 2022-02-08 09:46 | PC.NURSE ---
0812 RN biophysical completed at this time. Pt has been sleeping in intervals since admission. Mag at 2 g/hr infusing without difficulty, pt denies any discomfort to 20 g in R wrist. Edema noted to BLE and charted in biophysical assessment intervention. Pt is s/p vaginal delivery on 02/05, with report of small amount of lochia. Pt reports prior to admission, she had been trying to breastfeed. Instructed pt that while she is here, infant can stay as well for bonding and feeding but she will need to have someone else stay to take care of the as she is a pt. Education provided to pt on , aware that if will not be here, she will need to use a breast pump. Pt denies any breast discomfort at this time.
[2022-02-08 10:41] LABS: Appearance,Urine CLEAR (Clear); Bilirubin,Urine Negative (Negative); Blood, Urine 3+ (Negative); Color,Urine YELLOW (Yellow); Glucose,Urine (UA) Negative (Negative); Ketones,Urine Negative (Negative); Leukocyte Esterase,Urine TRACE (Negative); Microscopic, Urine URINE MICROSCOPIC (MICROSCOPIC); Nitrate,Urine Negative (Negative); Protein,Urine Negative (Negative); Specific Gravity, Urine 1.025 (1.005-1.030); Urobilinogen,Urine 0.2 EU/dl (0.2)
[2022-02-08 10:54] LABS: Barbiturates Screen,Urine Negative ng/ml (<200)
[2022-02-08 10:55] LABS: Amphetamine/Metha Screen,Urine Negative ng/ml (<1000); Benzodiazepines Screen,Urine Negative ng/ml (<200)
[2022-02-08 10:56] LABS: Methadone Screen,Urine Negative ng/ml (<300)
[2022-02-08 10:57] LABS: Cannabinoid Screen,Urine Negative ng/ml (<50); Cocaine Screen,Urine Negative ng/ml (<300)
[2022-02-08 10:58] LABS: Opiate Screen,Urine Negative ng/ml (<300); Phencyclidine Screen,Urine Negative ng/ml (<25)
[2022-02-08 11:00] LABS: Bacteria,Urine Trace /lpf; RBC,Urine 20-50 #/hpf (0-3); Squamous Epithelial Cell,Urine Occasional #/hpf (0-5)
--- NOTE | 2022-02-08 11:37 | PC.NURSE ---
1130 Assisted pt with using her breast pump, encouraged that we will need to use it every couple hours, pt agreeable.
--- NOTE | 2022-02-08 16:49 | PC.NURSE ---
1548 RN reassessment completed, no acute changes from previous assessment. Pt has rested in intervals throughout the shift. has not joined pt yet, she reports he has a follow up appointment with his PCP and then will be coming to see her. She has been assisted several times this shift with using her breast pump. [facility] packet also provided to pt and reviewed. She continues to deny any headache, blurred vision, spots, epigastric pain. Lung sounds CTA, no c/o SOA. Abd soft and nontender with BS active in all quads. Pt reports lochia as small, denies any difficulty with urination. Tolerating mag infusion well, IV without any s/s infiltration. Bed locked and in lowest position, call light within reach, will continue to monitor.
[2022-02-08 18:26] LABS: Coronavirus 19, PCR Not Detected (NotDetected); Influenza A, PCR Not Detected (NotDetected); Influenza B, PCR Not Detected (NotDetected)
[2022-02-09] VITALS (11 sets, daily range): BP systolic 116–137; BP diastolic 51–75; PULSE 77–91; RESP 16–18; TEMP 36.6–36.8; O2SAT 97–100
[2022-02-09 01:53] LABS: OB Protein,Urine (DIP) Negative (Negative)
--- NOTE | 2022-02-09 04:48 | PC.NURSE ---
PT A&OX4. TOLERATING RA WELL. UP TO BATHROOM INDEPENDENTLY. ADEQUATE U/O T/O SHIFT. PT HAS HAD NO C/O PAIN, OR HEADACHE THUS FAR. ONLY C/O FEELING SLEEPY. HAS RESTED INTERMITTENTLY T/O SHIFT. PT HAS BEEN PUMPING EVERY COUPLE HOURS, DOING VERY WELL. TOLERATING MAGNESIUM INFUSION WELL. +2 PITTING EDEMA STILL PRESENT TO BLE. CLONUS ABSENT, REFLEXES PRESENT. URINE PROTEIN OBTAINED, NEGATIVE. NO VISION ISSUES OR RUQ PAIN NOTED. B/P HAS BEEN STABLE T/O SHIFT. AND NB IN ROOM T/O NIGHT-NB ADMITTED AT BEGINNING OF SHIFT FOR PHOTOTHERAPY. AT 0430, DID MOVE PT TO ROOM 280. TOLERATED WELL. ALL BELONGINGS TO ROOM 280. RESTING AT THIS TIME, NO NEEDS OR C/O NOTED. VSS, WILL CONTINUE TO MONITOR. MAG LEVELS TO BE DRAWN AT 0600.
[2022-02-09 07:14] LABS: Magnesium 5.9 mg/dl (1.6-2.3)
--- NOTE | 2022-02-09 11:33 | HMH.DCSUM ---
General - General Admission date:: 02/08/22 Discharge date: 02/09/22 HPI HPI: She is a 21-year-old 1 now para 1 who was 2 days from a vaginal delivery at [facility]. She was admitted for induction of labor and delivered spontaneously a liveborn male child. She received some nifedipine while hospitalized but was not sent with any blood pressure medicine at home. When she arrived here her blood pressure was in the 150s over 90s. She had a mild headache. As result of that she is admitted for blood pressure control. Hospital Course Hospital Course: While hospitalized she received magnesium sulfate 4 g bolus then 2 g an hour for 24 hours. She was started on labetalol 200 mg twice daily. Her blood pressure has stabilized. She will be discharged home today to follow-up with me in a week's time to check her blood pressure. She will continue with labetalol 200 mg twice daily. She was given the usual instructions with respect to limiting her activity, driving and sexual activity. She will call if she has any further symptoms of high blood pressure. Her condition on discharge is stable and improved. Objective Vital signs: Temp Pulse Resp BP Pulse Ox 97.8 F 88 18 129/58 L 100 02/09/22 08:15 02/09/22 10:32 02/09/22 08:15 02/09/22 10:32 02/09/22 08:15 no acute distress - *Routine HEENT Exam Head: Present: normocephalic Eye: Present: EOMI, PERRL ENT: Present: mucous membranes moist Results Labs on day of discharge: Labs from last 24 hours 02/09/22 02/09/22 02/08/22 06:58 00:00 18:15 Magnesium 5.9 H D Urine Protein Negative SARS-CoV-2 (PCR) Not detected Influenza A Untype (PCR) Not detected Influenza Type B (PCR) Not detected DS: Diagnosis - Discharge Diagnosis (1) Hypertension, condition or complication Status: Acute Discharge Plan - Patient Discharge Instructions ACTIVITY: No heavy lifting DIET: continue same diet Patient Instructions: DI for Pre-eclampsia - Follow up Plan Follow up with: Jorge A Logan MD [Staff Physician] - 02/14/22 10:45 am Disposition: Home, Self-Care Condition at discharge:: Improved Home Medications: Home Medications Medication Instructions Recorded Confirmed Type Ondansetron [Zofran 4mg ODT] 4 mg PO Q8HP PRN #12 tab.rapdis 02/18/21 02/08/22 Rx Ibuprofen [Ibuprofen 600mg 600 mg PO TIDP PRN 02/08/22 02/08/22 History Tablet] Mupirocin [Bactroban 2% Ointment 1 applicatio TP TID 02/08/22 02/08/22 History 22gm tube] Sertraline HCl [Zoloft] 150 mg PO DAILY 02/08/22 02/08/22 History Labetalol HCl [Normodyne 100mg 200 mg PO BID #60 tab 02/09/22 Rx tablet] Prescriptions/Medication Reconciliation: New Labetalol HCl [Normodyne 100mg tablet] 200 mg PO BID #60 tab Continued Mupirocin [Bactroban 2% Ointment 22gm tube] 1 applicatio TP TID Ondansetron [Zofran 4mg ODT] 4 mg PO Q8HP PRN #12 tab.rapdis PRN Reason: Nausea Sertraline HCl [Zoloft] 150 mg PO DAILY Ibuprofen [Ibuprofen 600mg Tablet] 600 mg PO TIDP PRN PRN Reason: Mild Pain,Fever,Headache - Problem Reconciliation Problems Reviewed?: Yes
--- NOTE | 2022-02-09 14:27 | PC.NURSE ---
1410 Discharge education provided to pt, questions encouraged and answered.
== END 2022-02-09 14:40 | disposition home or self-care (01) ==
LOC: OBOUT 04:41 → OB 06:28
PROVIDERS: Admitting Provider Nurse Practitioner Obstetrics & Gynecology; PCP Nurse Practitioner Family; Visit Provider Nurse Practitioner Obstetrics & Gynecology
DX: O13.5 Gestational [pregnancy-induced] hypertension without significant proteinuria, complicating the puerperium (principal); Z20.822 Contact with and (suspected) exposure to COVID-19
CPT/HCPCS: 36415; 80048; 80305; 81001; 81002; 83735; 84450; 84460; 84550; 85025; 85378; 85384; 85610; 85730; C9803; G0378; U0003; U0005

== ENCOUNTER 2022-07-20 16:53 | Emergency (ER) | payer BC, SELFPAY ==
[2022-07-20 17:00] VITALS: BP 129/87; PULSE 111; RESP 20; O2SAT 97; BMI 41.1
--- NOTE | 2022-07-20 18:10 | EXP.UTC ---
Discharge Plan Disposition Patient Disposition: Home, Self-Care Condition: Good Prescriptions Prescriptions: New azithromycin [Zithromax] 250 mg tablet 250 mg PO UD DOSE PK Qty: 6 0RF Rx Instructions: Take two (2) tablets today, then one (1) tablet days #2 thru #5 [id number] [Bromfed DM] 2-30-10 mg/5 mL Syrup 5 ml PO Q6H PRN (Reason: Cough) Qty: 240 0RF No Action dextroamphetamine-amphetamine [Adderall XR] 15 mg capsule,extended release 24hr 15 mg PO DAILY Qty: 30 0RF sertraline 100 mg tablet 150 mg PO DAILY Qty: 45 2RF labetalol 100 MG tablet 200 mg PO BID Qty: 60 2RF Referrals Follow up/Referrals: Diane Meadows APRN [Primary Care Provider] - See instructions Activity Restrictions/Add. Instructions Additional Instructions/Restrictions: Drink plenty of fluids. Take tylenol or ibuprofen for pain or fever. Take the medications as directed. Follow up with your regular doctor. GO TO THE ER FOR ANY WORSENING SYMPTOMS Clinical Impressions Clinical Impression: Viral syndrome, Bronchitis Instructions Patient Instructions: DI for Viral Syndrome Discharge ED Provider: Satya Hobson [facility] General Stated complaint: COUGH, SOA, BODYACHES Mode of Arrival: Ambulatory Source of Information: Patient Limitations: No Limitations Time Seen by Provider: 07/20/22 18:10 Description of Symptoms (Recalled from Triage Doc. by RN): pt reports drinking a hot toddy at home and reports it burnt in her chest. pt denies chest pain. pt states a hx of cough/congestion. History of Present Illness Provider Complaint: She states that for the past 2 days she has had chest and sinus congestion and a sore throat. Related Data Previous Rx's Medication Instructions Recorded labetalol 100 mg tablet 200 mg PO BID #60 tabs 02/09/22 dextroamphetamine-amphetamine ER 15 mg PO DAILY #30 caps 05/27/22 15 mg 24hr capsule,extend release (Adderall XR) sertraline 100 mg tablet 150 mg PO DAILY MOOD #45 tabs 06/23/22 azithromycin 250 mg tablet 250 mg PO UD DOSE PK #6 tabs 07/20/22 (Zithromax) [id number]-dqveajfmybeduxc-WF 5 ml PO Q6H PRN Cough #240 mL 07/20/22 2 mg-30 mg-10 mg/5 mL oral syrup (Bromfed DM) Allergies Allergy/AdvReac Type Severity Reaction Status Date / Time No Known Allergies Allergy Verified 07/20/22 18:20 PFSH PFSH Medical History Generalized anxiety disorder Major depressive disorder Social History Smoking Status: Never smoker alcohol intake: never substance use type: denies use current occupational status: employed Travel in the last 8 weeks: None household members: significant other housing: house number of children: 0 ROS Obtained: Yes All systems reviewed & no additional complaints except as documented Constitutional Constitutional: Reports chills and Denies fever(s) Eyes Eyes: Denies eye discharge ENT Ears, Nose, Mouth, and Throat: Reports as per HPI Cardiovascular Cardiovascular: Denies chest pain Respiratory Respiratory: Denies chest congestion and Reports cough Gastrointestinal Gastrointestingal: Reports nausea; Denies abdominal pain, constipation, cramping, diarrhea or vomiting Musculoskeletal Musculoskeletal: Denies arthralgias Integumentary/Breasts Skin/Breast: Denies rash Neurologic Neurologic: Denies paresthesias Physical Exam General General appearance: alert and in no apparent distress Head Head exam: atraumatic, normocephalic and normal inspection Eye Eye exam: Present normal appearance, PERRL and EOMI ENT ENT exam: Present normal exam, normal oropharynx, mucous membranes moist, TM's normal bilaterally and normal external ear exam Neck Neck exam: Present normal inspection, full ROM and trachea midline; Absent meningismus or lymphadenopathy Chest Chest inspection: Present normal inspect
[2022-07-20 18:15] VITALS: BP 129/87; PULSE 111; RESP 20; TEMP 38.8; O2SAT 98; BMI 41.1
[2022-07-20 18:24] LABS: UTC Strep Screen (Rapid) Negative (Negative)
[2022-07-20 18:25] LABS: UTC Influenza A Antigen Negative (Negative); UTC Influenza B Antigen Negative (Negative)
[2022-07-20 19:13] VITALS: BP 129/87; PULSE 111; RESP 20; TEMP 37.7
[2022-07-20 19:21] LABS: Adenovirus,PCR Not Detected (NotDetected); Bordetella Pertussis Not Detected (NotDetected); Chlamydophila Pneumoniae, PCR Not Detected (NotDetected); Coronavirus 19, PCR Not Detected (NotDetected); Coronavirus 229E Not Detected (NotDetected); Coronavirus NL63 Not Detected (NotDetected); Coronavirus OC43 Not Detected (NotDetected); Coronovirus HKU1,PCR Not Detected (NotDetected); Human Metapneumovirus Not Detected (NotDetected); Influenza A, PCR Not Detected (NotDetected); Influenza AH1, PCR Not Detected (NotDetected); Influenza AH3,PCR Not Detected (NotDetected); Influenza B, PCR Not Detected (NotDetected); Mycoplasma Pneumoniae, PCR Not Detected (NotDetected); Parainfluenza 1, PCR Not Detected (NotDetected); Parainfluenza 2, PCR Not Detected (NotDetected); Parainfluenza 3, PCR Not Detected (NotDetected); Parainfluenza 4, PCR Not Detected (NotDetected); Respiratory Syncytial Virus Not Detected (NotDetected); Rhinovirus/Enterovirus Not Detected (NotDetected)
[2022-07-22 10:52] LABS: Influenza AH1, 2009 Detected (NotDetected)
== END 2022-07-20 19:13 | disposition home or self-care (01) ==
LOC: ER 17:06 → UTC 17:13
PROVIDERS: Emergency Provider Nurse Practitioner Family; PCP Nurse Practitioner Family
DX: J40 Bronchitis, not specified as acute or chronic (principal)
CPT/HCPCS: 87581; 87632; 87798; 87804; 87880; 99212; C9803; G0463; U0003; U0005

== ENCOUNTER 2023-03-12 11:36 | Emergency (ER) | payer BC, SELFPAY ==
[2023-03-12 11:37] VITALS: BP 124/72; PULSE 105; RESP 17; TEMP 36.4; O2SAT 99; BMI 36.6
--- NOTE | 2023-03-12 11:55 | EXP.UTC ---
Discharge Plan Disposition Patient Disposition: Home, Self-Care Condition: Good Prescriptions Prescriptions: New prednisone 10 mg tablet 10 mg PO BID 3 Days Qty: 6 0RF amoxicillin [amoxicillin] 875 mg tablet 875 mg PO Q12H Qty: 20 0RF kenylowrfptccaj-pilwlehql-IW [Bromfed DM] 2-30-10 mg/5 mL Syrup 5 ml PO Q6H PRN (Reason: Cough) Qty: 240 0RF No Action sertraline 100 mg tablet 150 mg PO DAILY Qty: 45 2RF dextroamphetamine-amphetamine [Adderall XR] 15 mg capsule,extended release 24hr 15 mg PO DAILY Qty: 30 0RF Referrals Follow up/Referrals: Diane Meadows APRN [Primary Care Provider] - See instructions Activity Restrictions/Add. Instructions Additional Instructions/Restrictions: Drink plenty of fluids. Take tylenol or ibuprofen for pain or fever. Take the medications as directed. Follow up with your regular doctor. GO TO THE ER FOR ANY WORSENING SYMPTOMS Clinical Impressions Clinical Impression: Pharyngitis, Otitis media Instructions Patient Instructions: DI for Pharyngitis/Tonsillopharyngitis -- Adult Discharge ED Provider: Satya Hobson [facility] General Stated complaint: Sinus pressure, ear ache Mode of Arrival: Ambulatory Source of Information: Patient Limitations: No Limitations Time Seen by Provider: 03/12/23 11:55 Description of Symptoms (Recalled from Triage Doc. by RN): Patient reports bilateral ear pain, hurts to swallow and sinus pressure for 2 days now. HEENT Symptoms (Recalled from RN notes): Yes Resp Symptoms (Recalled from RN notes): No Skin Symptoms (Recalled from RN notes): No MS Symptoms (Recalled from RN notes): No Functional Status (Recalled from RN notes): wnl History of Present Illness Provider Complaint: She states that for the past 2 days she has had bilateral ear pain and sore throat. She gets strep throat frequently. Related Data Previous Rx's Medication Instructions Recorded sertraline 100 mg tablet 150 mg PO DAILY MOOD #45 tabs 02/01/23 dextroamphetamine-amphetamine ER 15 mg PO DAILY #30 caps 03/10/23 15 mg 24hr capsule,extend release (Adderall XR) amoxicillin 875 mg tablet 875 mg PO Q12H #20 tabs 03/12/23 blqcakcqclaqnup-jzmkvybawhictag-YL 5 ml PO Q6H PRN Cough #240 mL 03/12/23 2 mg-30 mg-10 mg/5 mL oral syrup (Bromfed DM) prednisone 10 mg tablet 10 mg PO BID 3 days #6 tabs 03/12/23 Allergies Allergy/AdvReac Type Severity Reaction Status Date / Time No Known Allergies Allergy Verified 02/01/23 08:50 Worker's Comp Is this a Worker's Comp case?: No [facility] Disclaimer: The information contained in this section may have been updated after the patient was seen, as this information can be updated by other users. Medical History Attention deficit disorder (ADD) in adult Generalized anxiety disorder Major depressive disorder Social History Smoking Status: Never smoker alcohol intake: never substance use type: denies use current occupational status: employed Travel in the last 8 weeks: None household members: significant other housing: house number of children: 0 ROS Obtained: Yes All systems reviewed & no additional complaints except as documented Constitutional Constitutional: Reports chills and Reports fever(s) Eyes Eyes: Denies eye discharge ENT Ears, Nose, Mouth, and Throat: Reports as per HPI Cardiovascular Cardiovascular: Denies chest pain Respiratory Respiratory: Denies chest congestion and Reports cough Gastrointestinal Gastrointestingal: Reports nausea; Denies abdominal pain, constipation, cramping, diarrhea or vomiting Musculoskeletal Musculoskeletal: Denies arthralgias Integumentary/Breasts Skin/Breast: Denies rash Neurologic Neurologic: Denies paresthesias Physical Exam General General appearance: alert and in no apparent distress Head Head exam: atraumatic, normocep
[2023-03-12 11:58] LABS: UTC Strep Screen (Rapid) Negative (Negative)
[2023-03-12 12:16] VITALS: BP 124/72; PULSE 105; RESP 17; TEMP 36.4; O2SAT 99
== END 2023-03-12 12:17 | disposition home or self-care (01) ==
PROVIDERS: Emergency Provider Nurse Practitioner Family; PCP Nurse Practitioner Family
DX: H66.93 Otitis media, unspecified, bilateral (principal); J02.9 Acute pharyngitis, unspecified; F90.9 Attention-deficit hyperactivity disorder, unspecified type; F41.1 Generalized anxiety disorder; F33.9 Major depressive disorder, recurrent, unspecified
CPT/HCPCS: 87880; 99212; 99214; G0463

== ENCOUNTER → 2023-08-08 12:11 | Outpatient (CLI) | payer BC, SELFPAY ==
[2023-08-08 12:06] LABS: HCG,Quantitative 3788 mIU/ml (0-5.42)
== END ==
PROVIDERS: PCP Nurse Practitioner Family; Visit Provider Nurse Practitioner Psychiatric/Mental Health
DX: Z32.00 Encounter for pregnancy test, result unknown (principal)
CPT/HCPCS: 84702

== ENCOUNTER 2023-11-04 08:00 | Emergency (ER) | payer BC, SELFPAY ==
[2023-11-04 08:10] VITALS: BP 126/64; PULSE 111; RESP 18; TEMP 37.2; O2SAT 98; BMI 38.2
[2023-11-04 08:37] LABS: UTC Influenza A Antigen Negative (Negative); UTC Influenza B Antigen Negative (Negative); UTC Strep Screen (Rapid) Negative (Negative)
--- NOTE | 2023-11-04 09:01 | ED_ITS ---
Discharge Plan Disposition Patient Disposition: Home, Self-Care Condition: Good Prescriptions Prescriptions: No Action sertraline 100 mg tablet 150 mg PO DAILY Qty: 45 2RF Referrals Follow up/Referrals: Diane Meadows APRN [Primary Care Provider] - See instructions Activity Restrictions/Add. Instructions Additional Instructions/Restrictions: No sign of a bacterial infection. Likely viral. Viruses can take 7-14 days to run their course. Nasal saline and bulb syringe or nose [place] to remove nasal drainage to help with nasal congestion. Hard to eat, drink, sleep with nasal congestion so important to keep this cleaned out. Monitor temp. Tylenol or Motrin as needed for pain or fever Encourage fluids, water, Gatorade, Powerade, Pedialyte if infant/toddler/child Warm salt water gargles Warm fluids Sore throat lozenges Sleep elevated Humidifier/vaporizer Follow-up immediately for new or worsening symptoms or no noticeable improvement over the next 48-72 hours. Clinical Impressions Clinical Impression: URI (upper respiratory infection) Instructions Patient Instructions: DI for Viral Upper Respiratory Infection -- Adult Discharge ED Provider: Douglas ([facility])P[facility]on [facility] HPI General Stated complaint: 18 wks preg, body aches, sinus pressure Mode of Arrival: Ambulatory Source of Information: Patient Limitations: No Limitations Time Seen by Provider: 11/04/23 09:01 Description of Symptoms (Recalled from Triage Doc. by RN): Pt's symptoms are body aches, sinus congestion, and diarrhea. HEENT Symptoms (Recalled from RN notes): Yes Resp Symptoms (Recalled from RN notes): No Skin Symptoms (Recalled from RN notes): No MS Symptoms (Recalled from RN notes): No Functional Status (Recalled from RN notes): n/a History of Present Illness Provider Complaint: 23 yr old female presents symptoms are body aches, sinus congestion, and diarrhea. Related Data Previous Rx's Medication Instructions Recorded sertraline 100 mg tablet 150 mg (1.5 x 100 mg) PO DAILY 10/18/23 MOOD #45 tabs Allergies Allergy/AdvReac Type Severity Reaction Status Date / Time No Known Allergies Allergy Verified 11/04/23 08:31 Worker's Comp Is this a Worker's Comp case?: No [facility] Disclaimer: The information contained in this section may have been updated after the patient was seen, as this information can be updated by other users. Medical History , PURCHASING ADMINISTRATIVE ASSISTANT) Attention deficit disorder (ADD) in adult Generalized anxiety disorder Major depressive disorder Social History , PURCHASING ADMINISTRATIVE ASSISTANT) Smoking Status: Never smoker alcohol intake: never substance use type: denies use current occupational status: employed Travel in the last 8 weeks: None household members: significant other housing: house number of children: 0 ROS Obtained: Yes All systems reviewed & no additional complaints except as documented Constitutional Constitutional: Reports system reviewed and no additional complaints, except as documented Eyes Eyes: Reports system reviewed and no additional complaints, except as documented ENT Ears, Nose, Mouth, and Throat: Reports system reviewed and no additional compla ints, except as documented, Reports as per HPI, Reports nasal congestion, Reports nasal discharge and Reports sinus pressure Cardiovascular Cardiovascular: Reports system reviewed and no additional complaints, except as documented Respiratory Respiratory: Reports system reviewed and no additional complaints, except as documented, Reports as per HPI and Reports cough Gastrointestinal Gastrointestingal: Reports system reviewed and no additional complaints, except as documented, as per HPI and diarrhea Musculoskeletal Musculoskeletal: Reports system reviewed and no additional complaints, except as documented Integumentary/Breasts Skin/Breast: Reports system reviewed and no additional complaints, except as documented Endocrine Endocrine: Reports system reviewed and no additional complaints, except as documented Hematologic/Lymphatic Henatologic/Lymphatic: Reports system reviewed and no additional complaints, except as documented Allergic/Immunologic Allergic/Immunologic: Reports system reviewed and no additional complaints, except as documented Physical Exam General General appearance: alert and in no apparent distress Head Head exam: atraumatic Eye Eye exam: Present normal appearance and PERRL ENT ENT exam: Present normal exam, normal oropharynx, mucous membranes moist and TM's normal bilaterally Respiratory Respiratory exam: Present normal lung sounds bilaterally Cardiovascular Cardiovascular exam: Present regular rate and normal rhythm Neurological Exam Neurological exam: Present alert and oriented X3 Skin Skin exam: Present warm and intact Medical Decision Making Eulogio Inquiry Pt receiving controlled substance: No Eulogio was queried for this patient: No Vital Signs: 11/04/23 08:10 Temperature 99.0 F Temperature Source Oral Pulse Rate [Right Radial] 111 H Respiratory Rate 18 Blood Pressure [Right Arm] 126/64 Blood Pressure Mean [Right Arm] 84 Blood Pressure Source [Right Arm] Automatic Cuff Blood Pressure Position [Right Arm] Sitting 02 Sat by Pulse Oximetry 98 Oxygen Delivery Method Room Air Lab Data Lab results reviewed: Yes I reviewed the patient's lab results. Lab Results 11/04/23 08:20: Influenza Type A Ag Negative, Influenza Type B Ag Negative, Strep Scn Rapid Clinic Negative Orders (Tests/Meds): ORDERS Category Date Time Status Strep Screen Confirmation Stat Micro 11/04/23 08:20 Received
[2023-11-04 09:12] VITALS: BP 106/80; PULSE 72; RESP 18; TEMP 36.8; O2SAT 95
== END 2023-11-04 09:12 | disposition home or self-care (01) ==
PROVIDERS: Emergency Provider Nurse Practitioner Family; PCP Nurse Practitioner Family
DX: J06.9 Acute upper respiratory infection, unspecified (principal); R09.81 Nasal congestion; R19.7 Diarrhea, unspecified; M79.18 Myalgia, other site; B34.9 Viral infection, unspecified
CPT/HCPCS: 87804; 87880; 99212; 99213; G0463

== ENCOUNTER 2025-02-07 13:14 | Outpatient (CLI) | payer BC, SELFPAY ==
--- OUTSIDE RECORDS SUMMARY | 2025-02-07 13:17 | XMS_ITS | Clinical Summary ---
Author Organization [facility] Address [address] [place] [address] Care Team Providers Care Gambling Supervisor Name Role Phone Diane Meadows CARLOS Primary Care Provider [phone] Allergies No known active allergies Medications ASPIRIN 81 MG chewable tablet Chew 1 tablet (81 mg) 1 (one) time each day. Active multivitamin () 27-0.8 MG tablet Take by mouth 1 (one) time each day. 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 Referred to peds cards. Last Assessment & Plan: Patient seen for concern for right-sided aortic arch on previous anatomy ultrasound. Ultrasound today is somewhat limited by positioning though is suspicious for right-sided aortic arch potential vascular ring. 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 I do not appreciate any other cardiac anomalies but would like to have Ms Covert see Pediatric Cardiology for evaluation. The referral has been placed. We discussed the fact that, on imaging today, the aortic and ductal arch appear to surround the trachea in a U shaped configuration consistent with a loose vascular ring. 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 As above, the patient declined amniocentesis. The loose vascular ring associated with a right sided aortic arch/left sided ductal arch can be associated with tracheal occlusion though less often than with a double aortic arch. Ms Lucas was informed of the possible need for surgical intervention in the future. Patient scheduled for echo in 5 weeks. We will see patient immediately after that ultrasound. Resolved Problems Problem Noted Date Diagnosed Date Resolved Date Hypertension, con dition or complication 01/16/2024 01/16/2024 Family History Medical History Relation Name Comments Hypertension Mother Relation Name Status Comments Mother Social History Tobacco Use Types Packs/Day Years Used Date Smoking Tobacco: Former Cigarettes Passive Smoke Exposure: Never Smokeless Tobacco: Never Tobacco Cessation:Counseling Given: Yes Alcohol Use Standard Drinks/Week Comments Not Currently 0 (1 standard drink = 0.6 oz pur e alcohol) Comments Unknown Sex and Gender Information Value Date Recorded Sex Assigned at Not on file Legal Sex Female 6:06 PM EDT Gender Identity Not on file Sexual Orientation Not on file Last Filed Vital Signs Vital Sign Reading Time Taken Comments Blood Pressure - - Pulse - - Temperature - - Respiratory Rate - - Oxygen Saturation - - Inhaled Oxygen Concentration - - Weight 76.7 kg (169 lb 0.1 oz) 02/09/2016 9:21 A M EDT Height 160.7 cm (5' 3.25 ) 02/09/2016 9:21 AM ED T Body Mass Index 29.7 02/09/2016 9:21 AM EDT Plan of Treatment Health Maintenance Due Date Last Done Comments [facility]-Depression Screening 1999 [facility]-HIV Screening 1999 [facility]-Hepatitis C Screening 1999 [facility]-/Child/Adol SDOH Screenings 1999 [facility]-Varicella Vaccines (2 of 2 - 2-dose childhood series) 03/04/2011 12/10/2010 HPV Vaccines (1 - 3-dose series) 2014 [facility]- SDOH Screenings 2017 [facility]-Adult SDOH Screenings 2017 [facility]-Hepatitis B Vaccines (1 of 3 - 19+ 3-dose series) 2018 [id number] Vaccine (2023- season) 2024 [facility]-Influenza Vaccine (Season Ended) 2025 [facility]-Pap Smear 09/13/2026 09/13/2023 [facility]-DTaP,Tdap,and Td Vaccines (4 - Td or Tdap) 01/17/2034 01/18/2024, 01/05/2022, 12/10/2010 [facility]-Zoster Vaccines (1 of 2) 2049 12/10/2010 [facility]-Hepatitis A Vaccines Completed 019, 08/03/2018 [facility]-HIB Vaccines Aged Out No longer e ligible based on patient's age to complete this topic [facility]-IPV Vaccines Aged Out No longer e ligible based on patient's age to complete this topic [facility]-Pneumococcal Vaccine: Pediatrics (0 to 5 Years) and At-Risk Patients (6 to 49 Years) Aged Out No longer eligible b ased on patient's age to complete this topic [facility]-Rotavirus Vaccines Aged Out No lo nger eligible based on patient's age to complete this topic Insurance DONNAEM Care Teams Gambling Supervisor Relationship Specialty Start Date End Date Diane Meadows APRN [address] [place] [address] PCP - General 01/16/24
== END 2025-02-07 23:59 | disposition home or self-care (01) ==
LOC: LAB.DROPOF 13:15
PROVIDERS: PCP Nurse Practitioner Family; Visit Provider Physician Assistant
DX: R30.0 Dysuria (principal)
CPT/HCPCS: 87086; 87088; 87186